=== PATIENT | female | born 1955 | race Two or more races ===

== ENCOUNTER 2017-08-19 14:55 | Emergency (ER) | payer MEDICARE, OTHER ==
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
[2017-08-19] MEDS ORDERED: Acetaminophen/HYDROcodone 325-5 MG Tab PO ONE ×2 (17:40→19:24)
[2017-08-19] MEDS ORDERED: Ibuprofen 800 MG Tab PO ONE (17:43)
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
== END 2017-08-19 19:30 | disposition home or self-care (01) ==
LOC: FB.ED 14:55
DX: S16.1XXA Strain of muscle, fascia and tendon at neck level, initial encounter (principal); S20.211A Contusion of right front wall of thorax, initial encounter; S80.11XA Contusion of right lower leg, initial encounter; S40.011A Contusion of right shoulder, initial encounter; I10 Essential (primary) hypertension; Z79.899 Other long term (current) drug therapy; V43.52XA Car driver injured in collision with other type car in traffic accident, initial encounter; Y92.410 Unspecified street and highway as the place of occurrence of the external cause
CPT/HCPCS: 70450; 71111; 72125; 73562; 73590; 99284; 99285; A9270